=== PATIENT | female | born 1960 | race Caucasian/White ===

== ENCOUNTER 2024-08-11 10:58 | Outpatient (CLI) | payer BC, MEDICAID, SELFPAY ==
--- NOTE | 2024-08-11 11:08 | XR_ITS ---
WS: [id number] Chest 2 views, 08/11/2024 Clinical Data: dyspnea on exertion Comparison: None. Findings: No nodules, masses or effusions are seen. The heart is normal. The pulmonary vascularity is not increased. No pneumonia or pneumothorax is seen. There is a mild dextroscoliosis of the thoracic spine. XR/XR chest 2V* [id number] Impression: Negative chest.
[2024-08-11 11:20] LABS: Basophils # 0.1 10^3/uL (0.0-0.1); Eosinophils # 0.2 10^3/uL (0.0-0.8); Eosinophils % 3.2 %; Hematocrit 44.7 % (36-47); Lymphocytes # 1.2 10^3/uL (0.8-4.8); Lymphocytes % 17.8 %; Mean Corpuscular HGB Conc 32.4 g/dL (30-55); Mean Corpuscular Hemoglobin 28.9 pg (27-33); Mean Corpuscular Volume 89.2 fl (85-98); Mean Platelet Volume 9.2 fL (7.4-10.4); Monocytes # 0.3 10^3/uL (0.2-0.9); Neutrophils # 4.92 10^3/uL (1.8-7.7); Neutrophils % 72.7 %; Nucleated Red Blood Cells % 0 %; Platelet Count 301 10^3/cmm (157-399); Red Blood Count 5.01 10^6/uL (3.85-5.65); Red Cell Distribution Width 12.3 % (12.1-15.1); White Blood Count 6.78 10^3/uL (3.29-11.43)
[2024-08-11 11:23] LABS: Erythrocyte Sedimentation Rate 10 mm/hr (0-15)
[2024-08-11 11:48] LABS: Alanine Aminotransferase 21 U/L (0-33); Albumin Level 4.1 g/dL (3.5-5.2); Alkaline Phosphatase 102 U/L (35-105); Aspartate Amino Transferase 15 U/L (0-32); Blood Urea Nitrogen 15 mg/dL (8-23); C Reactive Protein 7.7 mg/L (0.0-4.9); Calcium 9.5 mg/dL (8.5-10.5); Carbon Dioxide 27 mmol/L (22-29); Chloride 97 mmol/L (98-107); Ferritin 64 ng/mL (15-150); Globulin 3.5 g/dL (1.3-4.6); Glomerular Filtration Rate 84.8 mL/min (90-130); Glucose 109 mg/dL (65-115); Iron 62 ug/dL (37-145); Osmolality Calculated 279 mOsm/kg (285-295); Percent Saturation 19.9 % (20-50); Sodium 134 mmol/L (136-145); Thyroid Stimulating Hormone 2.73 uIU/mL (0.27-4.20); Total Bilirubin 0.4 mg/dL (0.15-1.2); Total Iron Binding Capacity 311 mcg/dl; Total Protein 7.6 g/dL (6.6-8.7); Unsaturated Iron Binding 249 ug/dL (112-347)
== END 2024-08-11 10:59 | disposition home or self-care (01) ==
LOC: LAB 11:03
PROVIDERS: PCP Nurse Practitioner Family; Visit Provider Nurse Practitioner Family
DX: Z86.2 Personal history of diseases of the blood and blood-forming organs and certain disorders involving the immune mechanism (principal); R19.00 Intra-abdominal and pelvic swelling, mass and lump, unspecified site; R06.09 Other forms of dyspnea
CPT/HCPCS: 36415; 71046; 80053; 82728; 83540; 83550; 84443; 85025; 85651; 86140

== ENCOUNTER 2024-08-15 07:07 | Outpatient (CLI) | payer BC, MEDICAID, SELFPAY ==
--- NOTE | 2024-08-15 07:15 | US_ITS ---
WS: [id number] Complete ABDOMINAL ULTRASOUND HISTORY: ABDOMINAL MASS COMPARISON: None available. Liver: 13.8 cm in length. Normal size liver and echogenicity. No bile duct dilatation or mass. Portal Vein: Normal hepatopetal flow with monophasic waveform. Gallbladder: Normally distended with cholelithiasis. No acute cholecystitis. CBD: 0.4 cm Pancreas: Poorly visualized. Right kidney: 9.1 cm x 6.1 x 6.1 cm. Cortex:1.0 cm. Normal size and echogenicity. No hydronephrosis or mass. Left kidney: 10.1 cm x 4.6 cm x 4.6 cm. Cortex: 1.0 cm. Normal size and echogenicity. No hydronephrosis or mass. Spleen: 10.6 cm. Normal size and echogenicity. Aorta and IVC: Poorly visualized. Ultrasound is also performed along the midline abdomen. Slightly he terogeneous soft tissue. No color Doppler was submitted. No discrete definite mass is identified. US/US abdomen complete* [id number] Impression: 1. Cholelithiasis without acute cholecystitis. 2. Negative liver. 3. No renal obstruction. 4. Mildly heterogeneous soft tissue in the midline of the abdominal wall. No d efinite mass identified. No Doppler was submitted. If there is a palpable mass recommend follow-up CT abdomen and pelvis with IV and oral contrast.
[2024-08-15 10:15] LABS: Alanine Aminotransferase 27 U/L (0-33); Alkaline Phosphatase 103 U/L (35-105); Blood Urea Nitrogen 13 mg/dL (8-23); Calcium 9.6 mg/dL (8.5-10.5); Carbon Dioxide 23 mmol/L (22-29); Chloride 104 mmol/L (98-107); Globulin 3.5 g/dL (1.3-4.6); Glomerular Filtration Rate 72.7 mL/min (90-130); Glucose 166 mg/dL (65-115); Osmolality Calculated 292 mOsm/kg (285-295); Sodium 139 mmol/L (136-145); Total Bilirubin 0.4 mg/dL (0.15-1.2); Total Protein 7.5 g/dL (6.6-8.7)
[2024-08-15 10:21] LABS: Anion Gap 16.6 (5-19); Potassium 4.6 mmol/L (3.5-5.1)
[2024-08-15 10:22] LABS: Aspartate Amino Transferase 25 U/L (0-32)
--- NOTE | 2024-08-15 14:45 | US_ITS ---
WS: [id number] US pelvic complete* [id number] HISTORY: MEIGS SYNDROME COMPARISON: None available. Uterus: 7.5 cm x 4.1 cm x 3.1 cm. Normal size anteverted uterus. No fibroid or mass. Several small nabothian cysts. Endometrium: 0.5 cm. Normal size endometrium There is a small cyst at the subendometrial junction measuring 0.6 x 0.8 x 0.6 cm. This may be a smal l subendometrial gland. This can also be present post ablation of the endometrium. Neither ovary is identified As per history the LEFT ovary has been removed. No RIGHT adnexal mass or ovary. Tiny amount of free f luid in the cul-de-sac. US/US pelvic complete* [id number] IMPRESSION: 1. Status post LEFT oophorectomy. 2. RIGHT ovary is not identified. 3. Tiny amount of free fluid in the cul-de-sac. 4. Small cyst in the subendometrial zone. This may be an subendometrial dilate d gland. If patient's had prior ablation of the endometrium this may be post en dometrial ablation fluid.
== END 2024-08-15 07:08 | disposition home or self-care (01) ==
PROVIDERS: PCP Nurse Practitioner Family; Visit Provider Nurse Practitioner Family
DX: R19.00 Intra-abdominal and pelvic swelling, mass and lump, unspecified site (principal); E87.1 Hypo-osmolality and hyponatremia; Q82.0 Hereditary lymphedema; Z90.721 Acquired absence of ovaries, unilateral; N85.8 Other specified noninflammatory disorders of uterus
CPT/HCPCS: 36415; 76700; 76856; 80053

== ENCOUNTER 2024-09-08 09:56 | Outpatient (CLI) | payer BC, MEDICAID, SELFPAY ==
--- NOTE | 2024-09-08 10:03 | MM_ITS ---
WS: [id number] VIEWS: MLO and CC views both breasts. 3D digital tomosynthesis is also included in this exam. Baseline study. Findings: There are scattered areas of fibroglandular density. No sign of suspicious mass, tumor calcification or architectural distortion. MM/MM scr BI tomosynthesis [id number] Impression: BI-RADS: 2 - Benign FOLLOW-UP: 1 Year Follow-up This mammogram was also analyzed by the Computer Aided Detection System R2 [employer].
== END 2024-09-08 09:57 | disposition home or self-care (01) ==
LOC: RAD 09:57
PROVIDERS: PCP Nurse Practitioner Family; Visit Provider Family Medicine
DX: Z12.31 Encounter for screening mammogram for malignant neoplasm of breast (principal); R92.323 Mammographic fibroglandular density, bilateral breasts
CPT/HCPCS: 77063; 77067

== ENCOUNTER 2024-10-15 08:05 | Outpatient (CLI) | payer BC, MEDICAID, SELFPAY ==
--- NOTE | 2024-10-15 08:30 | CT_ITS ---
WS: [id number] CT ABDOMEN AND PELVIS WITH CONTRAST HISTORY: hernia TECHNIQUE: Imaging performed of the abdomen and pelvis with IV contrast. Single phase imaging of the abdomen. Coronal and sagittal reformats are submitted. All CT scans at [facility] use at least one of these dose optimization techniques: automated exposure control; mA and/or kV adjustment per patient size (includes targeted exams where dose is matched to clinical indication); or iterative reconstruction. IV CONTRAST: Omnipaque 350; 100 mL IV. Oral contrast: No DLP: 700.94 mGy.cm COMPARISON: None available. Lower thorax: Lung bases are clear. Heart is normal size. Small hiatal hernia. Liver/biliary system: Normal size with no intrahepatic dilatation. Gallbladder: Normal. No gallstones or wall thickening. No pericholecystic fluid. Pancreas: Normal size pancreas and pancreatic duct. No adjacent inflammation. Spleen: Normal size spleen. No mass or infarct. Adrenal glands: Normal. Right kidney: Normal. Left kidney: Normal. Aorta: Mild atherosclerosis. No aneurysm. Lymphadenopathy: None. Free fluid: None. GI tract: Normal stomach. No small bowel obstruction or colon obstruction. Normal appendix. A few sigmoid diverticula without acute diverticulitis. Protrusion of a portion of the transverse colon and small bowel loops in the mid abdomen through the ventral abdominal wall. Abdominal wall: Marked rectus diastases. Widening between the RIGHT and LEFT rectus muscles measures up to 11.3 cm. Overall length of the abdominal wall defect is 14.4 cm. Marked thinning and stretching of the linea alba with protrusion of the mesenteric fat, transverse colon and small bowel loops through the defect. There is no obstruction. No additional hernias are identified. There is a small lipoma in the RIGHT lateral external oblique muscle measuring 1.9 cm. Pelvis: No free fluid or adenopathy within the pelvis. Midline uterus. LEFT ovary not identified. Small RIGHT ovary as expected. Nondistended urinary bladder. Bones: Increase in lumbar lordosis. CT/CT abdomen pelvis w con* [id number] IMPRESSION: 1. Marked rectus diastases of the abdominal wall musculature. Rectus muscles a re by 11.3 cm extending over a length of 14.4 cm. Protrusion of mesen teric fat, small bowel and colon through the hernia. 2. No additional hernia is identified. No ascites or adenopathy. 3. Normal appendix. 4. RIGHT external oblique muscle lipoma.
[2024-10-15] MEDS: iohexol 350 mg/mL 500 mL Btl (per mL) IV (09:01)
== END 2024-10-15 08:06 | disposition home or self-care (01) ==
LOC: RAD 08:05
PROVIDERS: PCP Nurse Practitioner Family; Visit Provider Student in an Organized Health Care Education/Training Program
DX: K46.9 Unspecified abdominal hernia without obstruction or gangrene (principal); M62.08 Separation of muscle (nontraumatic), other site; R93.5 Abnormal findings on diagnostic imaging of other abdominal regions, including retroperitoneum; D17.9 Benign lipomatous neoplasm, unspecified; K57.30 Diverticulosis of large intestine without perforation or abscess without bleeding; R93.89 Abnormal findings on diagnostic imaging of other specified body structures
CPT/HCPCS: 74177